=== PATIENT | male | born 1955 | race Caucasian/White ===

== ENCOUNTER 2020-09-03 13:20 | Emergency (ER) | payer OTHER, MEDICAID ==
[~2020-09-03] VITALS: Ht 165.1 cm; Wt 90.7 kg
--- NOTE | 2020-09-03 13:20 | NUR ---
Placed in room 08 . Placed on hospital monitor, blood pressure machine and pulse oximeter. To gown for exam. Side rails up.
--- NOTE | 2020-09-03 13:25 | NUR ---
Pt came to ER for abdominal distention and tenderness. Pt AO4, VSS, ambulatory, family at bedside, no distress noted. Pt awaiting MD.
--- NOTE | 2020-09-03 13:27 | NUR ---
ER at bedside examining patient.
[2020-09-03 13:28] VITALS: BP_SYST 153
[2020-09-03 13:52] LABS: BILIRUBIN,URINE NEGATIVE (NEGATIVE); BLOOD, URINE 3+ (NEGATIVE); COLOR,URINE YELLOW (YELLOW); GLUCOSE,URINE NEGATIVE (NEGATIVE); KETONES,URINE NEGATIVE (NEGATIVE); LEUKOCYTE ESTERASE ,URINE NEGATIVE (NEGATIVE); NITRITE, URINE NEGATIVE (NEGATIVE); PROTEIN URINE NEGATIVE (NEGATIVE)
--- NOTE | 2020-09-03 13:55 | NUR ---
Radiology at bedside for ultrasound.
[2020-09-03 13:57] LABS: CLARITY/URINE SLIGHTLY HAZY (CLEAR)
--- NOTE | 2020-09-03 14:07 | NUR ---
Consent for US guided paracentesis signed and placed in chart.
[2020-09-03 14:09] LABS: BASOPHILS % (AUTO) 0.6 % (0.0-2.0); EOSINOPHILS # (AUTO) 0.1 K/uL (0.0-0.4); EOSINOPHILS % (AUTO) 2.2 % (0.0-4.0); HEMATOCRIT 25.2 % (36-54); HEMOGLOBIN 8.7 g/dL (14.0-18.0); LYMPHOCYTES # (AUTO) 1.1 K/uL (1.0-5.5); MEAN CORPUSCULAR HEMOGLOBIN 30 pg (27-31); MEAN CORPUSCULAR HGB CONC 34 % (32-36); MEAN CORPUSCULAR VOLUME 87 fL (79.0-98.0); MONOCYTES # (AUTO) 0.5 K/uL (0.0-1.0); MONOCYTES % (AUTO) 8.1 % (1.7-9.3); NEUTROPHILS # (AUTO) 4.2 K/uL (1.8-7.7); NEUTROPHILS % (AUTO) 70.1 % (40.0-70.0); PLATELET COUNT (AUTO) 85 K/uL (130-430); RED BLOOD CELL COUNT(AUTO) 2.89 MIL/uL (4.2-6.2); RED CELL DISTRIBUTION WIDTH 14.8 % (9.0-15.0)
[2020-09-03 14:11] LABS: BACTERIA,URINE RARE /HPF (None Seen); MUCUS,URINE 1+ /LPF (None Seen); WBC,URINE 0-3 /HPF (0-3)
[2020-09-03 14:13] LABS: CALCIUM 7.4 mg/dL (8.4-11.0); CREATININE 1.56 mg/dL (0.55-1.30); POTASSIUM 4.1 mmol/L (3.5-5.1)
[2020-09-03] MEDS ORDERED: LIDOCAINE 1%, 20 ML MDV 20 ML ONE (14:16)
[2020-09-03 14:17] LABS: INR 1.5 (0.80-1.20); PROTHROMBIN TIME 14.7 SECS (9.5-12.5)
[2020-09-03 14:18] LABS: ALBUMIN 1.5 g/dL (3.4-4.8); TOTAL BILIRUBIN 0.8 mg/dL (0.0-1.0)
--- NOTE | 2020-09-03 14:25 | NUR ---
Dr. Montalvo at bedside with ultra sound performing paracentesis. 9L removed, pt tolerated well. V/S stable
[2020-09-03 14:32] LABS: C-REACTIVE PROTEIN QUANT 1.8 mg/dL (0-0.5)
[2020-09-03] MEDS ORDERED: BACITRACIN 1 GM OINT TP ONE (15:20)
[2020-09-03 15:40] VITALS: BP_SYST 153
--- NOTE | 2020-09-03 15:40 | NUR ---
Patient given written and verbal discharge instructions and verbalizes understanding. ER MD discussed with patient the results and treatment provided. Patient in stable condition. ID arm band removed. No prescriptions given. Patient educated on pain management and to follow up with PMD. Pain Scale 0. Opportunity for questions provided and answered. Medication side effect fact sheet provided.
== END 2020-09-03 15:40 | disposition home or self-care (01) ==
LOC: SED 13:20
DX: R18.8 Other ascites (principal); R14.0 Abdominal distension (gaseous); R94.31 Abnormal electrocardiogram [ECG] [EKG]; Z88.8 Allergy status to other drugs, medicaments and biological substances
CPT/HCPCS: 36415; 49083; 76705; 80053; 81000; 82150; 83605; 83615; 83690; 84484; 85025; 85610; 85730; 86140; 93005; 99285; C1729; J2001

== ENCOUNTER 2020-09-19 12:22 | Emergency (ER) | payer OTHER, MEDICAID ==
[~2020-09-19] VITALS: Ht 165.1 cm; Wt 90.7 kg
[2020-09-19 12:28] VITALS: BP_SYST 163
[2020-09-19 14:36] LABS: BILIRUBIN,URINE NEGATIVE (NEGATIVE); BLOOD, URINE 3+ (NEGATIVE); CLARITY/URINE CLEAR (CLEAR); COLOR,URINE YELLOW (YELLOW); GLUCOSE,URINE NEGATIVE (NEGATIVE); KETONES,URINE NEGATIVE (NEGATIVE); LEUKOCYTE ESTERASE ,URINE NEGATIVE (NEGATIVE); NITRITE, URINE NEGATIVE (NEGATIVE); PH,URINE 5.5 (5.0-8.0); PROTEIN URINE NEGATIVE (NEGATIVE)
[2020-09-19 14:44] LABS: BASOPHILS # (AUTO) 0.1 K/uL (0.0-0.2); BASOPHILS % (AUTO) 0.8 % (0.0-2.0); EOSINOPHILS # (AUTO) 0.2 K/uL (0.0-0.4); EOSINOPHILS % (AUTO) 2.3 % (0.0-4.0); HEMATOCRIT 24.6 % (36-54); HEMOGLOBIN 8.5 g/dL (14.0-18.0); LYMPHOCYTES # (AUTO) 1.4 K/uL (1.0-5.5); LYMPHOCYTES % (AUTO) 19.4 % (20.5-51.5); MEAN CORPUSCULAR HEMOGLOBIN 30 pg (27-31); MEAN CORPUSCULAR HGB CONC 34 % (32-36); MEAN CORPUSCULAR VOLUME 87 fL (79.0-98.0); MONOCYTES # (AUTO) 0.6 K/uL (0.0-1.0); MONOCYTES % (AUTO) 8.6 % (1.7-9.3); NEUTROPHILS # (AUTO) 4.9 K/uL (1.8-7.7); NEUTROPHILS % (AUTO) 68.9 % (40.0-70.0); PLATELET COUNT (AUTO) 106 K/uL (130-430); RED BLOOD CELL COUNT(AUTO) 2.85 MIL/uL (4.2-6.2); RED CELL DISTRIBUTION WIDTH 14.5 % (9.0-15.0); WHITE BLOOD COUNT (AUTO) 7.1 K/uL (4.8-10.8)
[2020-09-19 14:54] LABS: CALCIUM 7.3 mg/dL (8.4-11.0); CREATININE 1.52 mg/dL (0.55-1.30); POTASSIUM 3.5 mmol/L (3.5-5.1)
[2020-09-19 14:58] LABS: INR 1.3 (0.80-1.20); PROTHROMBIN TIME 13.3 SECS (9.5-12.5)
[2020-09-19 15:07] LABS: ALBUMIN 1.4 g/dL (3.4-4.8); TOTAL BILIRUBIN 0.6 mg/dL (0.0-1.0)
[2020-09-19 15:10] LABS: BACTERIA,URINE None Seen /HPF (None Seen)
[2020-09-19 15:56] VITALS: BP_SYST 163
== END 2020-09-19 15:55 | disposition left against medical advice (07) ==
LOC: SED 12:22
DX: R14.0 Abdominal distension (gaseous) (principal); R94.31 Abnormal electrocardiogram [ECG] [EKG]; Z88.8 Allergy status to other drugs, medicaments and biological substances
CPT/HCPCS: 36415; 80053; 81000; 82140; 83605; 83690; 85025; 85610-TC; 85730-TC; 87040-TC; 93005; 99284

== ENCOUNTER 2020-09-20 08:32 | Emergency (ER) | payer OTHER, MEDICAID ==
[~2020-09-20] VITALS: Ht 165.1 cm; Wt 90.7 kg
[2020-09-20 08:46] VITALS: BP_SYST 133
--- NOTE | 2020-09-20 08:46 | NUR ---
Patient to ER bed 8 to gown for evaluation. Side rails up. Report given to Rosalina FERNANDES.
--- NOTE | 2020-09-20 08:55 | NUR ---
Pt. came in with c/o feeling uncomfortable and swollen all over, with mild SOB, pt. requesting paracentesis, has hx. of liver cirrhosis.
--- NOTE | 2020-09-20 09:00 | NUR ---
ER at bedside examining patient.
--- NOTE | 2020-09-20 10:32 | NUR ---
paracentesis in process, pt. tolerating will
--- NOTE | 2020-09-20 11:21 | NUR ---
paracentesis done 8 bottles filled, post VSS
[2020-09-20 12:17] VITALS: BP_SYST 137
--- NOTE | 2020-09-20 12:18 | NUR ---
Patient given written and verbal discharge instructions and verbalizes understanding. ER Dr. Sam discussed with patient the results and treatment provided. Patient in stable condition. ID arm band removed. Patient educated on pain management and to follow up with PMD. Pain Scale 0. Opportunity for questions provided and answered. Medication side effect fact sheet provided.
[2020-09-20 14:20] LABS: APPEARANCE,SPUN,BODY FLUID CLEAR (CLEAR); BF APPEARANCE UNSPUN HAZY (CLEAR); BODY FLUID COLOR PINK (LT YELLOW); BODY FLUID SOURCE/ TYPE ASCITES; BODY FLUID TOTAL VOLUME 20 mL; RBC, BODY FLUID 1083 /uL; SOURCE/TYPE ,BODY FLUID PARACENTESIS; WBC, BODY FLUID 58 /uL
[2020-09-20 14:21] LABS: LYMPHOCYTES, BODY FLUID 57 %; NEUTROPHIL, BODY FLUID 43 %
[2020-09-22 11:08] LABS: BODY FLUID GLUCOSE 117 mg/dL
== END 2020-09-20 12:18 | disposition home or self-care (01) ==
LOC: SED 08:32
DX: R18.8 Other ascites (principal); Z88.8 Allergy status to other drugs, medicaments and biological substances
CPT/HCPCS: 49083; 82947; 84157; 88108; 89051 ×2; 89060; 99285; C1729

== ENCOUNTER 2020-10-14 13:53 | Emergency (ER) | payer OTHER, MEDICAID ==
[~2020-10-14] VITALS: Ht 165.1 cm; Wt 90.7 kg
[2020-10-14 14:00] VITALS: BP_SYST 142
[2020-10-14 21:06] VITALS: BP_SYST 135
== END 2020-10-14 21:06 | disposition home or self-care (01) ==
LOC: SED 13:53
DX: R18.8 Other ascites (principal); Z88.8 Allergy status to other drugs, medicaments and biological substances
CPT/HCPCS: 99281

== ENCOUNTER → 2020-10-15 | Emergency (ER) | payer OTHER, MEDICAID ==
[~2020-10-15] VITALS: Ht 165.1 cm; Wt 99.8 kg
[2020-10-15 14:48] VITALS: BP_SYST 159
--- NOTE | 2020-10-15 14:48 | NUR ---
Patient triaged and placed in waiting room. VSS and patient appears in no acute distress at this time. Accompanied by FAMILY, awaiting available bed, and MD notified of need for MSE.
--- NOTE | 2020-10-15 15:10 | NUR ---
DR HALL EVALUATING PT IN TRIAGE ROOM
--- NOTE | 2020-10-15 16:01 | NUR ---
Patient given written and verbal discharge instructions and verbalizes understanding. ER MD discussed with patient the results and treatment provided. Patient in stable condition. ID arm band removed. Rx of NONE given. Patient educated on pain management and to follow up with PMD. Pain Scale 0/10. Opportunity for questions provided and answered. Medication side effect fact sheet provided.
== END | disposition home or self-care (01) ==
LOC: SED 14:48
DX: R18.8 Other ascites (principal); Z88.8 Allergy status to other drugs, medicaments and biological substances
CPT/HCPCS: 99281